=== PATIENT | female | born 1950 | race Caucasian/White ===

== ENCOUNTER 2023-07-18 05:45 | Inpatient (IN) | payer BC ==
[2023-07-18] VITALS (19 sets, daily range): BP systolic 97–159; BP diastolic 52–83; PULSE 55–69; RESP 17–18; TEMP 97.1–97.9
[~2023-07-18] VITALS: Ht 165.1 cm; Wt 99.2 kg
[2023-07-18] MEDS ORDERED: CARV6.2534 PO (06:13)
[2023-07-18] MEDS ORDERED: ISOS30TA92 PO (06:13)
[2023-07-18] MEDS ORDERED: CLOP75TA32 PO (06:13)
[2023-07-18] MEDS ORDERED: ROSU10TA72 PO (06:13)
[2023-07-18] MEDS ORDERED: LINA5TAB PO (06:13)
[2023-07-18] MEDS ORDERED: RANO500T6 PO (06:13)
[2023-07-18] MEDS ORDERED: EZET10TA57 PO (06:13)
[2023-07-18] MEDS ORDERED: ASPI-1450 PO (06:14)
[2023-07-18 07:08] LABS: BASOPHILS % (AUTO) 0.6 % (0.0-2.0); EOSINOPHILS % (AUTO) 1.7 % (1.0-6.0); HEMATOCRIT 41.6 % (36-46); HEMOGLOBIN 14.2 g/dL (12.0-16.0); LYMPHOCYTES # (AUTO) 1.4 K/uL (1.0-4.8); LYMPHOCYTES % (AUTO) 26.1 % (22.0-44.0); MEAN CORPUSCULAR HEMOGLOBIN 31.9 pg (26.0-34.0); MEAN CORPUSCULAR VOLUME 94 fL (80-100); MONOCYTES # (AUTO) 0.8 K/uL (0.1-1.0); MONOCYTES % (AUTO) 14.7 % (2.0-9.0); NEUTROPHILS # (AUTO) 3.1 K/uL (1.8-7.7); NEUTROPHILS % (AUTO) 56.9 % (40.0-70.0); PLATELET COUNT (AUTO) 354 K/uL (150-450); RED BLOOD CELL COUNT(AUTO) 4.44 MIL/uL (4.00-5.20); RED CELL DISTRIBUTION WIDTH 13.4 % (11.5-14.5); WHITE BLOOD COUNT (AUTO) 5.4 K/uL (4.5-11.0)
[2023-07-18 07:09] LABS: COVID AG,FIA SOURCE NASAL SWAB
[2023-07-18 07:17] LABS: CREATININE 1.3 mg/dL (0.60-1.30); POTASSIUM 4.7 mmol/L (3.5-5.1)
[2023-07-18 07:25] LABS: TROPONIN I-HIGH SENSITIVITY 13 ng/L (<51)
[2023-07-18 07:35] LABS: PROTHROMBIN TIME 10.5 SEC (9.4-11.6)
[2023-07-18 07:39] LABS: SARS-COV2 (COVID) ANTIGEN,FIA Negative (Negative)
[2023-07-18 07:41] LABS: ALBUMIN 3.6 g/dL (3.4-5.0); BILIRUBIN,TOTAL 0.8 mg/dL (0.1-1.0); TOTAL PROTEIN, SERUM 7.1 g/dL (6.4-8.2)
[2023-07-18] MEDS ORDERED: MIDAZOLAM HCL 2 MG/2 ML VIAL ONE (07:47)
[2023-07-18] MEDS ORDERED: FentaNYL CITRATE PF 100 MCG/2 ML VIAL ONE (07:47)
[2023-07-18] MEDS ORDERED: LIDOCAINE 1% 30 ML/SOD BICARB 8.4% 4 ML SQ ONE (08:00)
[2023-07-18] MEDS ORDERED: HEPARIN SODIUM 1000 UNITS/NS 1,000 ML IARTER ONE (08:00)
[2023-07-18] MEDS ORDERED: FentaNYL CITRATE PF 100 MCG/2 ML VIAL IVP ONE ×2 (08:00→09:45)
[2023-07-18] MEDS ORDERED: IOHEXOL 300 MG/ML 100 ML VIAL IARTER ONE ×3 (08:00→08:30)
[2023-07-18] MEDS ORDERED: MIDAZOLAM HCL 2 MG/2 ML VIAL IVP ONE (08:00)
[2023-07-18] MEDS ORDERED: ASPIRIN 325 MG TABLET ONE (08:02)
[2023-07-18] MEDS ORDERED: TICAGRELOR 90 MG TABLET ONE (08:02)
[2023-07-18] MEDS ORDERED: CLOPIDOGREL BISULFATE 300 MG TABLET ONE (08:04)
[2023-07-18] MEDS ORDERED: HEPARIN SODIUM,PORCINE 1,000 UNITS/ML 10 ML VIAL IVP ONE ×2 (08:15→08:30)
[2023-07-18] MEDS ORDERED: CLOPIDOGREL BISULFATE 75 MG TABLET PO ONE (08:15)
[2023-07-18] MEDS ORDERED: ASPIRIN 325 MG TABLET PO ONE (08:15)
[2023-07-18] MEDS ORDERED: IOHEXOL 300 MG/ML 100 ML VIAL ONE (08:41)
[2023-07-18] MEDS ORDERED: HEPARIN SODIUM 1000 UNITS/NS 1,000 ML ONE (08:42)
[2023-07-18] MEDS ORDERED: SODIUM BICARBONATE 50 MEQ/50 ML VIAL ONE (08:42)
[2023-07-18] MEDS ORDERED: LIDOCAINE/PF 1% 30 ML VIAL ONE (08:42)
[2023-07-18] MEDS ORDERED: ALBUTEROL SULFATE 2.5 MG/0.5 ML NEB SOLUTION NEB PRN (09:00)
[2023-07-18] MEDS ORDERED: ONDANSETRON HCL 4 MG/2 ML VIAL IVP PRN (09:00)
[2023-07-18] MEDS ORDERED: 0.9% SODIUM CHLORIDE 10 ML SYRINGE IVP PRN (09:00)
[2023-07-18] MEDS ORDERED: DOCUSATE SODIUM 100 MG CAPSULE PO PRN (09:00)
[2023-07-18] MEDS ORDERED: IPRATROPIUM BROMIDE 0.5 MG/2.5 ML NEB SOLUTION NEB PRN (09:00)
[2023-07-18] MEDS ORDERED: ACETAMINOPHEN 325 MG TABLET PO PRN (09:00)
[2023-07-18] MEDS ORDERED: BISACODYL 10 MG RECTAL RECTAL SUPPOSITORY PR PRN (09:00)
[2023-07-18] MEDS ORDERED: GLUCAGON,HUMAN RECOMBINANT 1 MG VIAL IM PRN (09:00)
[2023-07-18] MEDS: ISOSORBIDE MONONITRATE 30 MG ER TABLET PO SCH (10:32)
[2023-07-18] MEDS: CARVEDILOL 6.25 MG TABLET PO SCH ×2 (10:32→20:46)
[2023-07-18] MEDS: CLOPIDOGREL BISULFATE 75 MG TABLET PO SCH (10:32)
[2023-07-18] MEDS: RANOLAZINE 500 MG ER TABLET PO SCH ×2 (10:32→20:46)
[2023-07-18] MEDS: EZETIMIBE 10 MG TABLET PO SCH (10:32)
[2023-07-18] MEDS: ASPIRIN 81 MG CHEWABLE TABLET PO SCH (10:32)
[2023-07-18] MEDS: INSULIN LISPRO 100 UNITS/ML SQ PRN ×3 (11:43→20:55)
[2023-07-18] MEDS: HEPARIN SODIUM,PORCINE 5,000 UNITS/ML VIAL SQ SCH ×2 (15:31→23:50)
[2023-07-18 17:07] LABS: APPEARANCE,URINE CLEAR (CLEAR); BILIRUBIN,URINE NEGATIVE (NEGATIVE); COLOR,URINE LIGHT YELLOW (YELLOW); GLUCOSE, URINE (UA) TRACE mg/dL (NEGATIVE); KETONES,URINE NEGATIVE (NEGATIVE); LEUKOCYTE ESTERASE ,URINE NEGATIVE (NEGATIVE); NITRATE,URINE NEGATIVE (NEGATIVE); OCCULT BLOOD,URINE NEGATIVE (NEGATIVE); PH,URINE 6.5 (5.0-8.0); PROTEIN,URINE NEGATIVE (NEGATIVE); SPECIFIC GRAVITIY, URINE 1.036 (1.003-1.030); UROBILINOGEN,URINE <=1.0 mg/dL (<=1.0)
[2023-07-18 19:06] LABS: GLUCOMETER DEV NAME(LOC) 5N.1C; GLUCOSE,POINT OF CARE 155 MG/DL (70-110)
[2023-07-18] MEDS ORDERED: ROSUVASTATIN CALCIUM 10 MG TABLET PO SCH (21:00)
[2023-07-18] MEDS ORDERED: DEXTROSE 50%-WATER 25 GM/50 ML SYG IVP PRN (21:30)
[2023-07-18] MEDS ORDERED: INSULIN LISPRO 100 UNITS/ML SQ PRN (21:30)
[2023-07-19 03:16] LABS: GLUCOMETER DEV NAME(LOC) 5S.1B; GLUCOSE,POINT OF CARE 160 MG/DL (70-110)
[2023-07-19 03:16] LABS: GLUCOMETER DEV NAME(LOC) 5S.1B; GLUCOSE,POINT OF CARE 172 MG/DL (70-110)
[2023-07-19 04:00] VITALS: BP 113/62; PULSE 62; RESP 18; TEMP 97.2
[2023-07-19 07:39] VITALS: BP 124/68; PULSE 66; RESP 18; TEMP 97.7
[2023-07-19] MEDS: ISOSORBIDE MONONITRATE 30 MG ER TABLET PO SCH (07:44)
[2023-07-19] MEDS: HEPARIN SODIUM,PORCINE 5,000 UNITS/ML VIAL SQ SCH (07:44)
[2023-07-19] MEDS: EZETIMIBE 10 MG TABLET PO SCH (07:45)
[2023-07-19] MEDS: CLOPIDOGREL BISULFATE 75 MG TABLET PO SCH (07:45)
[2023-07-19] MEDS: RANOLAZINE 500 MG ER TABLET PO SCH (07:45)
[2023-07-19] MEDS: CARVEDILOL 6.25 MG TABLET PO SCH (07:45)
[2023-07-19] MEDS: ASPIRIN 81 MG CHEWABLE TABLET PO SCH (07:46)
[2023-07-19 08:59] LABS: BASOPHILS % (AUTO) 0.6 % (0.0-2.0); EOSINOPHILS % (AUTO) 0.7 % (1.0-6.0); HEMATOCRIT 42.2 % (36-46); HEMOGLOBIN 14.2 g/dL (12.0-16.0); LYMPHOCYTES # (AUTO) 1.1 K/uL (1.0-4.8); LYMPHOCYTES % (AUTO) 15.9 % (22.0-44.0); MEAN CORPUSCULAR HEMOGLOBIN 31.8 pg (26.0-34.0); MEAN CORPUSCULAR HGB CONC 33.6 G/dL (31.0-37.0); MEAN CORPUSCULAR VOLUME 95 fL (80-100); MONOCYTES # (AUTO) 0.8 K/uL (0.1-1.0); MONOCYTES % (AUTO) 11.6 % (2.0-9.0); NEUTROPHILS # (AUTO) 4.8 K/uL (1.8-7.7); NEUTROPHILS % (AUTO) 71.2 % (40.0-70.0); PLATELET COUNT (AUTO) 355 K/uL (150-450); RED BLOOD CELL COUNT(AUTO) 4.47 MIL/uL (4.00-5.20); RED CELL DISTRIBUTION WIDTH 13.1 % (11.5-14.5); WHITE BLOOD COUNT (AUTO) 6.8 K/uL (4.5-11.0)
[2023-07-19 09:18] LABS: ALBUMIN 3.3 g/dL (3.4-5.0); BILIRUBIN,TOTAL 0.8 mg/dL (0.1-1.0); CALCIUM, TOTAL 8.8 mg/dL (8.8-10.5); CREATININE 1.21 mg/dL (0.60-1.30); POTASSIUM 4.2 mmol/L (3.5-5.1)
[2023-07-19 12:01] LABS: GLUCOMETER DEV NAME(LOC) 5S.1B; GLUCOSE,POINT OF CARE 159 MG/DL (70-110)
== END 2023-07-19 12:00 | disposition home or self-care (01) | DRG 322 ==
LOC: EDUNIT# 05:45 → EMS 05:53 → 5S 08:18
PROVIDERS: ADMIT Internal Medicine; ATTEND Internal Medicine
PROC: 027035Z Dilation of Coronary Artery, One Artery with Two Drug-eluting Intraluminal Devices, Percutaneous Approach (ICD-10-PCS; principal; 2023-07-18)
PROC: 4A023N7 Measurement of Cardiac Sampling and Pressure, Left Heart, Percutaneous Approach (ICD-10-PCS; 2023-07-18)
PROC: B2111ZZ Fluoroscopy of Multiple Coronary Arteries using Low Osmolar Contrast (ICD-10-PCS; 2023-07-18)
PROC: B240ZZ3 Ultrasonography of Single Coronary Artery, Intravascular (ICD-10-PCS; 2023-07-18)
PROC: B41F1ZZ Fluoroscopy of Right Lower Extremity Arteries using Low Osmolar Contrast (ICD-10-PCS; 2023-07-18)
DX: T82.855A Stenosis of coronary artery stent, initial encounter (principal); I25.110 Atherosclerotic heart disease of native coronary artery with unstable angina pectoris; I10 Essential (primary) hypertension; E11.9 Type 2 diabetes mellitus without complications; Z20.822 Contact with and (suspected) exposure to COVID-19; E78.5 Hyperlipidemia, unspecified; Y83.1 Surgical operation with implant of artificial internal device as the cause of abnormal reaction of the patient, or of later complication, without mention of misadventure at the time of the procedure; Z90.81 Acquired absence of spleen; Z88.8 Allergy status to other drugs, medicaments and biological substances; Y92.89 Other specified places as the place of occurrence of the external cause; Z79.82 Long term (current) use of aspirin; Z79.899 Other long term (current) drug therapy; Z79.02 Long term (current) use of antithrombotics/antiplatelets
CPT/HCPCS: 71045; 75960; 80053; 81003; 82550; 82962; 83880; 84484; 85025; 85610; 85730; 92920; 92928; 93005; 99285; J1644; J2250; J3010; J3490; Q9967; 36415-L1; 36415-TC